=== PATIENT | female | born 1955 | race Caucasian/White ===

== ENCOUNTER 2017-03-20 22:33 | Emergency (ER) | payer OTHER ==
[~2017-03-20] VITALS: Ht 162.6 cm; Wt 152.0 kg
[2017-03-20 23:39] VITALS: BP 109/58
[2017-03-21] MEDS ORDERED: cefTRIAXone SOD 1,000 MG VL IM ONE (00:15)
== END 2017-03-21 00:18 | disposition home or self-care (01) ==
LOC: ER 22:58
DX: J02.9 Acute pharyngitis, unspecified (principal)
CPT/HCPCS: 96372; 99283; J0696

== ENCOUNTER 2017-05-09 08:24 | Emergency (ER) | payer MEDICAID, OTHER ==
[~2017-05-09] VITALS: Ht 162.6 cm; Wt 104.3 kg
[2017-05-09 08:52] VITALS: BP 112/85
[2017-05-09 09:37] LABS: Basophils # (auto) 0 uL; Eosinophils # (auto) 0.1 uL; Eosinophils % (auto) 1.9 % (0.0-7.0); Hematocrit 36.6 % (36.0-46.0); Hemoglobin 12.7 g/dL (12.2-16.2); Lymphocytes # (auto) 0.2 uL; Lymphocytes % (auto) 6.7 % (10.0-50.0); Mean Corpuscular Hemoglobin 31.7 pg (28.0-32.0); Mean Corpuscular Hgb Conc. 34.6 g/dL (32.0-36.0); Mean Corpuscular Volume 91.8 fL (80.0-100.0); Monocytes # (auto) 0.5 uL; Monocytes % (auto) 16.3 % (0.0-12.0); Neutrophils # (auto) 2.4 uL; Neutrophils % (auto) 75.1 % (37.0-80.0); Nucleated Red Blood Cells % 0.2 %; Platelet Count (auto) 188 10^3/uL (140-450); Red Blood Cells 3.99 10^6/uL (4.0-5.20); Red Cell Distribution Width 13.1 % (11.8-14.3); White Blood Cell 3.2 10^3/uL (4.4-10.8)
[2017-05-09] MEDS ORDERED: ONDANSETRON HCL 4 MG/2 ML VIAL ONE (09:40)
[2017-05-09] MEDS ORDERED: MORPHINE SULF INJ 2 MG/ML SYRINGE 1ML ONE (09:43)
[2017-05-09] MEDS ORDERED: ONDANSETRON HCL 4 MG/2 ML VIAL IV ONE (09:45)
[2017-05-09] MEDS ORDERED: SODIUM CHLORIDE 0.9% 1,000 ML IV ONE (09:45)
[2017-05-09] MEDS ORDERED: MORPHINE SULFATE 4 MG/ML SYR/VIAL IV ONE (09:45)
[2017-05-09 09:51] LABS: Alanine Aminotransferase 50 U/L (13-56); Albumin 3.1 g/dL (3.4-5.0); Alkaline Phosphatase 116 U/L (45-117); Amylase 43 U/L (25-115); Anion Gap 12 (5-15); Aspartate Aminotransferase 36 U/L (15-37); BUN/Creatinine Ratio 21.3; Bilirubin, Total 0.4 mg/dL (0.2-1.0); Blood Urea Nitrogen 10 mg/dL (7-18); Calcium 8.6 mg/dL (8.5-10.1); Carbon Dioxide 21 mmol/L (21-32); Chloride 97 mmol/L (98-107); GFR African American 174 mL/min; GFR Non-African American 144 mL/min; Glucose 100 mg/dL (74-106); Lipase 140 U/L (73-393); Potassium 3.3 mmol/L (3.5-5.1); Sodium 130 mmol/L (136-145); Total Protein 6.2 g/dL (6.4-8.2)
[2017-05-09 10:09] LABS: Urine Bacteria NONE SEEN /hpf (None Seen); Urine Blood Negative /uL (Negative); Urine Mucus FEW (None Seen); Urine Specific Gravity 1.029 (1.001-1.035); Urine WBC 2 /hpf (0 - 5)
[2017-05-09] MEDS ORDERED: POTASSIUM CHL 20 Meq TABLET PO ONE ×2 (10:22→10:30)
== END 2017-05-09 10:53 | disposition home or self-care (01) ==
LOC: ER 08:24
DX: K52.9 Noninfective gastroenteritis and colitis, unspecified (principal); J02.9 Acute pharyngitis, unspecified; Z90.49 Acquired absence of other specified parts of digestive tract; Z90.710 Acquired absence of both cervix and uterus
CPT/HCPCS: 36415; 74176; 80053; 81001; 81002; 82150; 83690; 84484; 85025; 93005; 96361; 96374; 96375; 99285; J2270; J2405; J7030

== ENCOUNTER 2017-09-17 04:25 | Emergency (ER) | payer MEDICAID ==
[~2017-09-17] VITALS: Ht 162.6 cm; Wt 108.9 kg
[2017-09-17 04:37] VITALS: BP 160/73
[2017-09-17 05:00] LABS: Urine Bacteria FEW /hpf (None Seen); Urine Blood Negative /uL (Negative); Urine Hyaline Cast FEW /lpf (0 - 2); Urine Mucus FEW (None Seen); Urine Specific Gravity 1.026 (1.001-1.035); Urine WBC 7 /hpf (0 - 5)
== END 2017-09-17 05:51 | disposition left against medical advice (07) ==
LOC: ER 04:26
DX: J02.9 Acute pharyngitis, unspecified (principal); Z53.21 Procedure and treatment not carried out due to patient leaving prior to being seen by health care provider
CPT/HCPCS: 81001

== ENCOUNTER 2019-09-24 20:30 | Inpatient (IN) | payer MEDICAID ==
[~2019-09-24] VITALS: Ht 162.6 cm; Wt 76.8 kg
[2019-09-24 23:35] LABS: Basophils # (auto) 0 10 ^3/uL (0-0.2); Basophils % (auto) 0.5 % (0.0-2.0); Eosinophils # (auto) 0 10 ^3/uL (0-0.8); Eosinophils % (auto) 0.9 % (0.0-7.0); Hematocrit 36.9 % (36.0-46.0); Hemoglobin 12.5 g/dL (12.2-16.2); Lymphocytes # (auto) 0.8 10 ^3/uL (0.4-5.4); Lymphocytes % (auto) 15.6 % (10.0-50.0); Mean Corpuscular Hgb Conc. 33.9 g/dL (32.0-36.0); Mean Corpuscular Volume 91.3 fL (80.0-100.0); Monocytes # (auto) 0.3 10 ^3/uL (0-1.3); Monocytes % (auto) 5.8 % (0.0-12.0); Neutrophils # (auto) 4.1 10 ^3/uL (1.6-8.6); Neutrophils % (auto) 77.2 % (37.0-80.0); Platelet Count (auto) 189 10^3/uL (140-450); Red Blood Cells 4.04 10^6/uL (4.0-5.20); Red Cell Distribution Width 14.6 % (11.8-14.3); White Blood Cell 5.4 10^3/uL (4.4-10.8)
[2019-09-24 23:56] LABS: Alanine Aminotransferase 51 U/L (13-56); Albumin 2.8 g/dL (3.4-5.0); Anion Gap 6 (5-15); Aspartate Aminotransferase 23 U/L (15-37); BUN/Creatinine Ratio 35.9; Blood Urea Nitrogen 23 mg/dL (7-18); Calcium 8.1 mg/dL (8.5-10.1); Carbon Dioxide 24 mmol/L (21-32); Chloride 108 mmol/L (98-107); GFR African American 121 mL/min; GFR Non-African American 100 mL/min; Glucose 105 mg/dL (74-106); Magnesium 2.2 mg/dL (1.6-2.6); Potassium 3.9 mmol/L (3.5-5.1); Sodium 138 mmol/L (136-145)
[2019-09-25 00:01] LABS: Alkaline Phosphatase 123 U/L (45-117); Bilirubin, Total 0.3 mg/dL (0.2-1.0); Total Protein 5.7 g/dL (6.4-8.2)
[2019-09-25 01:12] LABS: Urine Bacteria NONE SEEN /hpf (None Seen); Urine Blood Negative /uL (Negative); Urine Specific Gravity 1.023 (1.001-1.035); Urine WBC 1 /hpf (0 - 5)
[2019-09-25 01:24] LABS: Amphetamine Screen, Urine NEGATIVE (NEGATIVE); Barbiturate Scree,Urine NEGATIVE (NEGATIVE); Benzodiazephine Screen, Urine NEGATIVE (NEGATIVE); Cannabinoid Screen, Urine NEGATIVE (NEGATIVE); Cocaine Screen, Urine NEGATIVE (NEGATIVE); Opiate Scree,Urine NEGATIVE (NEGATIVE); Phencyclidine Screen, Urine NEGATIVE (NEGATIVE)
[2019-09-25] MEDS ORDERED: IOHEXOL 350 MG/ML 100ML IJ ONE ×2 (02:11→02:36)
[2019-09-25 02:42] LABS: INR 1.04 (0.9-1.15); Partial Thromboplastin Time 27.3 sec (23.64-32.05)
[2019-09-25] MEDS ORDERED: cloNIDine HCL 0.1 MG TAB PO PRN (05:00)
[2019-09-25] MEDS ORDERED: ONDANSETRON HCL 4 MG/2 ML VIAL IV PRN (05:00)
[2019-09-25] MEDS ORDERED: NITROGLYCERIN 0.4 MG SL TAB SL PRN (05:00)
[2019-09-25] MEDS ORDERED: ACETAMINOPHEN 325 MG TAB PO PRN (05:00)
[2019-09-25] MEDS ORDERED: MORPHINE SULF INJ 2 MG/ML SYRINGE 1ML IV PRN ×2 (05:00)
[2019-09-25] MEDS ORDERED: DOCUSATE SOD 100 MG CAP PO PRN (05:00)
[2019-09-25] MEDS ORDERED: IPRATROPIUM BROM 0.5 MG/2.5ML INH SOL NEB PRN (05:15)
[2019-09-25] MEDS ORDERED: ALBUTEROL SULF 2.5 MG/0.5ML(0.5%) NEB SOLN NEB PRN (05:15)
[2019-09-25] MEDS ORDERED: OXYB10TA14 (05:29)
[2019-09-25] MEDS ORDERED: ESCI20TA51 (05:29)
[2019-09-25] MEDS ORDERED: ATOR1TAB PO (05:29)
[2019-09-25] MEDS ORDERED: ALBU108A5 PO (05:29)
[2019-09-25] MEDS ORDERED: TOPI25TA84 PO (05:29)
[2019-09-25] MEDS ORDERED: SUCR1TAB PO (05:29)
[2019-09-25] MEDS ORDERED: BACL20TA PO (05:29)
[2019-09-25] MEDS ORDERED: LISI10TA6 PO (05:29)
[2019-09-25] MEDS ORDERED: OXYB5TAB24 PO (05:29)
[2019-09-25] MEDS ORDERED: LORA-154 PO (05:29)
[2019-09-25] MEDS ORDERED: RIZA10TA22 PO (05:29)
[2019-09-25] MEDS ORDERED: CARB200T4 (05:29)
[2019-09-25 06:08] LABS: Basophils # (auto) 0 10 ^3/uL (0-0.2); Basophils % (auto) 0.8 % (0.0-2.0); Eosinophils # (auto) 0.1 10 ^3/uL (0-0.8); Eosinophils % (auto) 2.3 % (0.0-7.0); Hemoglobin 11.7 g/dL (12.2-16.2); Lymphocytes # (auto) 1.1 10 ^3/uL (0.4-5.4); Lymphocytes % (auto) 30.6 % (10.0-50.0); Mean Corpuscular Hemoglobin 30.7 pg (28.0-32.0); Mean Corpuscular Hgb Conc. 33.4 g/dL (32.0-36.0); Mean Corpuscular Volume 91.8 fL (80.0-100.0); Monocytes # (auto) 0.3 10 ^3/uL (0-1.3); Monocytes % (auto) 9.2 % (0.0-12.0); Neutrophils # (auto) 2.1 10 ^3/uL (1.6-8.6); Neutrophils % (auto) 57.1 % (37.0-80.0); Nucleated Red Blood Cells % 0.2 %; Platelet Count (auto) 162 10^3/uL (140-450); Red Blood Cells 3.82 10^6/uL (4.0-5.20); Red Cell Distribution Width 14.1 % (11.8-14.3); White Blood Cell 3.7 10^3/uL (4.4-10.8)
[2019-09-25 06:23] LABS: Calcium 8.2 mg/dL (8.5-10.1); Potassium 4.3 mmol/L (3.5-5.1)
[2019-09-25 06:27] LABS: BUN/Creatinine Ratio 31.1
[2019-09-25 06:56] VITALS: BP 148/76
[2019-09-25] MEDS: carBAMazepine 200 MG TAB PO SCH ×4 (07:12→21:40)
[2019-09-25 08:00] VITALS: BP 121/80
[2019-09-25 09:00] VITALS: BP 121/80
[2019-09-25] MEDS: LISINOPRIL 10 MG TAB PO SCH (10:00)
[2019-09-25] MEDS: PANTOPRAZOLE 40 MG/10 ML VIAL INJ IV SCH (11:02)
[2019-09-25] MEDS: TOPIRAMATE 25 MG TAB PO SCH ×2 (11:02→21:40)
[2019-09-25] MEDS: MULTIPLE VITAMINS W/ MINERALS TAB PO SCH (11:03)
[2019-09-25] MEDS: SODIUM CHLORIDE 0.9% 1,000 ML IV SCH ×2 (11:06→14:59)
[2019-09-25 12:43] VITALS: BP 122/76
[2019-09-25] MEDS: OXYBUTYNIN CHL 5 MG TAB PO SCH ×2 (14:36→21:40)
[2019-09-25 17:00] VITALS: BP 104/60
[2019-09-25] MEDS ORDERED: ATORVASTATIN 20 MG TAB PO SCH (18:00)
[2019-09-25 21:00] VITALS: BP 109/62
[2019-09-25] MEDS: HYDROcodone-ACET 5/325MG TAB PO PRN (21:51)
[2019-09-26] MEDS: SODIUM CHLORIDE 0.9% 1,000 ML IV SCH (02:04)
[2019-09-26] MEDS: HYDROcodone-ACET 5/325MG TAB PO PRN ×2 (04:18→08:33)
[2019-09-26 05:00] VITALS: BP 135/80
[2019-09-26] MEDS: OXYBUTYNIN CHL 5 MG TAB PO SCH (06:22)
[2019-09-26] MEDS: carBAMazepine 200 MG TAB PO SCH (06:23)
[2019-09-26 08:42] VITALS: BP 124/65
[2019-09-26] MEDS: MULTIPLE VITAMINS W/ MINERALS TAB PO SCH (10:04)
[2019-09-26] MEDS: PANTOPRAZOLE 40 MG/10 ML VIAL INJ IV SCH (10:04)
[2019-09-26] MEDS: TOPIRAMATE 25 MG TAB PO SCH (10:05)
[2019-09-26] MEDS: LISINOPRIL 10 MG TAB PO SCH (10:05)
[2019-09-26 11:38] VITALS: BP 124/65
[2019-09-26 12:36] VITALS: BP 142/68
== END 2019-09-26 12:41 | disposition home health service (06) | DRG 204 ==
LOC: EDBD 20:30 → ER 20:30 → TELE 20:31 → TELE-WESTW 09-25 06:39
PROVIDERS: ADMIT Hospitalist; ATTEND Hospitalist
DX: R55 Syncope and collapse (principal); E66.01 Morbid (severe) obesity due to excess calories; S09.90XA Unspecified injury of head, initial encounter; I11.9 Hypertensive heart disease without heart failure; Z80.8 Family history of malignant neoplasm of other organs or systems; E78.5 Hyperlipidemia, unspecified; K21.9 Gastro-esophageal reflux disease without esophagitis; M19.90 Unspecified osteoarthritis, unspecified site; F31.9 Bipolar disorder, unspecified; R26.9 Unspecified abnormalities of gait and mobility; W18.39XA Other fall on same level, initial encounter; Y93.89 Activity, other specified; Y92.89 Other specified places as the place of occurrence of the external cause; Y99.8 Other external cause status; Z68.38 Body mass index [BMI] 38.0-38.9, adult; Z82.49 Family history of ischemic heart disease and other diseases of the circulatory system; Z90.710 Acquired absence of both cervix and uterus; Z98.84 Bariatric surgery status; Z88.7 Allergy status to serum and vaccine; Z88.8 Allergy status to other drugs, medicaments and biological substances
CPT/HCPCS: 36415; 70450; 71045; 71275; 72125; 73120; 80048; 80053; 80061; 80307; 81001; 83735; 83880; 84484; 85025; 85379; 85610; 85730; 93005; 93970; 94640; C9113; G0378; J2405

== ENCOUNTER 2022-12-17 00:21 | Emergency (ER) | payer MEDICAID, OTHER ==
[~2022-12-17] VITALS: Ht 157.5 cm; Wt 109.5 kg
[~2022-12-17 00:21] MED LIST: ALBU108A5 PO; ATOR-47 PO; BACL20TA PO; LISI10TA34 PO; LORA-483 PO; OXYB5TAB24 PO; RIZA10TA22 PO; SUCR1TAB PO; TOPI25TA84 PO
[2022-12-17 00:40] VITALS: PULSE 61; RESP 15; O2SAT 96
[2022-12-17] MEDS ORDERED: LORazepam 0.5 MG TAB PO ONE (01:00)
[2022-12-17] MEDS ORDERED: cloNIDine HCL 0.1 MG TAB PO ONE (01:00)
[2022-12-17 01:16] LABS: Basophils # (auto) 0 10 ^3/uL (0-0.2); Basophils % (auto) 0.6 % (0.0-2.0); Eosinophils # (auto) 0 10 ^3/uL (0-0.8); Hematocrit 39.5 % (36.0-46.0); Hemoglobin 13.3 g/dL (12.2-16.2); Lymphocytes % (auto) 18.3 % (10.0-50.0); Mean Corpuscular Hgb Conc. 33.7 g/dL (32.0-36.0); Mean Corpuscular Volume 92.2 fL (80.0-100.0); Monocytes # (auto) 0.4 10 ^3/uL (0-1.3); Monocytes % (auto) 7.1 % (0.0-12.0); Neutrophils # (auto) 3.9 10 ^3/uL (1.6-8.6); Red Blood Cells 4.29 10^6/uL (4.0-5.20); Red Cell Distribution Width 13.4 % (11.8-14.3); White Blood Cell 5.2 10^3/uL (4.4-10.8)
[2022-12-17 01:32] LABS: BUN/Creatinine Ratio 31.8 (10.0-20.0); Calcium 8.9 mg/dL (8.5-10.1); Magnesium 2.2 mg/dL (1.6-2.6); Potassium 3.8 mmol/L (3.5-5.1)
[2022-12-17 01:35] LABS: Bilirubin, Total 0.2 mg/dL (0.2-1.0); Total Protein 5.9 g/dL (6.4-8.2)
[2022-12-17 04:01] VITALS: BP 124/78; PULSE 67; RESP 13; TEMP 97.8; O2SAT 93
== END 2022-12-17 04:20 | disposition home or self-care (01) ==
LOC: EDBD 00:21 → ER 00:23
DX: F41.9 Anxiety disorder, unspecified (principal); I10 Essential (primary) hypertension; K21.9 Gastro-esophageal reflux disease without esophagitis; E78.5 Hyperlipidemia, unspecified; Z90.49 Acquired absence of other specified parts of digestive tract; Z90.710 Acquired absence of both cervix and uterus; Z88.6 Allergy status to analgesic agent
CPT/HCPCS: 36415; 71045; 80053; 83735; 83880; 84484; 85025; 93005

== ENCOUNTER 2024-06-30 03:52 | Emergency (ER) | payer MEDICARE, MEDICAID ==
[~2024-06-30] VITALS: Ht 162.6 cm; Wt 131.8 kg
--- NOTE | 2024-06-30 04:18 | ED.PDOC ---
History of Present Illness HPI Comments 68-year-old female with a history of hypertension and Parkinson's disease states that she when outside the check on the dogs and tripped on some bushes about an hour ago 3:00 a.m. and then it on her left side on the ground. Patient now complains of some dull left pain to her left hand and left elbow and left hip area. No head injury or neck pain. Patient states that her blood pressure has been running a little bit elevated in her primary doctor was planning to increase her dose of her amlodipine starting today. Chief Complaint: High Blood Pressure Time Seen by MD: 04:01 Primary Care Provider: DENIES Allergies: Coded Allergies: Alprazolam (Verified Allergy, Unknown, 09/24/19) Aripiprazole (Verified Allergy, Unknown, 09/24/19) NSAIDs (Verified Allergy, Unknown, 05/09/17) Tetanus Toxoid (Verified Allergy, Unknown, 05/09/17) Home Meds Reported Medications Sucralfate (Sucralfate) 1 Gm Tab, 1 GM PO TID 09/25/19 Lisinopril (Lisinopril) 10 Mg Tab, 1 TAB PO DAILY 09/25/19 Topiramate (Topiramate) 25 Mg Tab, 2 TAB PO BID 09/25/19 Baclofen (Baclofen) 20 Mg Tab, 1 TAB PO BID 09/25/19 Oxybutynin Chloride (Ditropan Xl) 5 Mg Tab, 15 MG PO DAILY 09/25/19 Rizatriptan Benzoate (RIZATRIPTAN BENZOATE) 10 Mg Tab, 1 TAB PO when migraine starts 09/25/19 Albuterol Sulfate (Albuterol Sulfate Hfa) 108 Mcg/Act Aer, 1 PUFF PO Q4HP 09/25/19 Loratadine (CLARITIN TABLET) 10 Mg Tb, 1 TAB PO DAILY 09/25/19 Atorvastatin Calcium (ATORVASTATIN CALCIUM) 80 Mg Tab, 80 MG PO HS 09/25/19 Information Source: Patient, Emergency Med Personnel Mode of Arrival: EMS Severity: Moderate Timing: Hours Past Medical History PAST MEDICAL HISTORY: Depression, Gallstones, GERD, High Lipids, HTN Surgical History: Cholecystectomy, Hysterectomy, Thyroidectomy DELI SLICER History: No Pertinent DELI SLICER History Family History Family History: Reviewed,noncontributory to illness Social History Smoker: Non-Smoker Alcohol: Denies ETOH Use Drugs: Denies Drug Use Lives In: Home Constitutional: reports: fatigue Musculoskeletal: reports: joint pain, muscle pain All Other Systems: Reviewed and Negative Physical Exam General Appearance: Mild Distress HEENT: Normal ENT Inspection, Pharynx Normal, TMs Normal Neck: Full Range of Motion, Non-Tender, Normal, Normal Inspection Respiratory: Chest Non-Tender, Lungs Clear, No Accessory Muscle Use, No Respiratory Distress, Normal Breath Sounds Cardiovascular: No Edema, No JVD, No Murmur, No Gallop, Normal Peripheral Pulses, Regular Rate/Rhythm Breast Exam: Deferred Gastrointestinal: No Organomegaly, Non Tender, No Pulsatile Mass, Normal Bowel Sounds, Soft Genitalia: Deferred Pelvic: Deferred Rectal: Deferred Extremities: Other (mild tenderness left hand, left hip and left elbow ) Musculoskeletal : Apperance: Normal Neurologic: Alert, respiratory tech II-XII nml as Tested, No Motor Deficits, Normal Affect, Normal Mood, No Sensory Deficits Cerebellar Function: Normal Reflexes: Normal Skin: Other (small superficial abrasion left elbow area) Lymphatic: No Adenopathy Was a procedure done? Was a procedure done?: No Differential Dx Considerations may include: Differential diagnosis includes but not limited to: angina, myocardial infarc tion, ischemic stroke, intracranial hemorrhage, acute renal injury, end-organ failure and others X-Ray, Labs, Meds, VS Vital Signs Date Time Temp Pulse Resp B/P (MAP) Pulse Ox O2 Delivery O2 Flow Rate FiO2 06/30/24 06:00 64 16 153/74 (100) 98 06/30/24 06:00 168/79 06/30/24 05:04 177/78 06/30/24 04:45 63 94 95 Room Air* 0 21 06/30/24 04:41 61 13 176/94 (121) 97 06/30/24 04:00 64 06/30/24 04:00 98.1 66 16 206/98 (134) 95 Lab Test 06/30/24 05:16 06/30/24 04:02 Range/Units Troponin I High Sensitivity 4 4 </=34 ng/L White Blood Count 4.3 L 4.4-10.8 10^3/uL Red Blood Count 4.55 4.0-5.20 10^6/uL Hemoglobin 13.9 12.2-16.2 g/dL Hematocrit 42.2 36.0-46.0 % Mean Corpuscular Volume 92.8 80.0-100.0 fL Mean Corpuscular Hemoglobin 30.6 28.0-32.0 pg Mean Corpuscular Hemoglobin Concent 33.0 32.0-36.0 g/dL Red Cell Distribution Width 13.6 11.8-14.3 % Platelet Count 231 140-450 10^3/uL Mean Platelet Volume 8.0 6.9-10.8 fL Neutrophils (%) (Auto) 60.4 37.0-80.0 % Lymphocytes (%) (Auto) 32.4 10.0-50.0 % Monocytes (%) (Auto) 6.9 0.0-12.0 % Eosinophils (%) (Auto) 0.0 0.0-7.0 % Basophils (%) (Auto) 0.3 0.0-2.0 % Neutrophils # (Auto) 2.6 1.6-8.6 10 ^3/uL Lymphocytes # (Auto) 1.4 0.4-5.4 10 ^3/uL Monocytes # (Auto) 0.3 0-1.3 10 ^3/uL Eosinophils # (Auto) 0 0-0.8 10 ^3/uL Basophils # (Auto) 0 0-0.2 10 ^3/uL Nucleated Red Blood Cells 0.1 % Sodium Level 141 136-145 mmol/L Potassium Level 3.1 L 3.5-5.1 mmol/L Chloride Level 104 98-107 mmol/L Carbon Dioxide Level 27 20-31 mmol/L Anion Gap 10 5-15 Blood Urea Nitrogen 6 L 9-23 mg/dL Creatinine 0.59 0.550-1.02 mg/dL Glomerular Filtration Rate Calc 99 >90 mL/min BUN/Creatinine Ratio 10.2 10.0-20.0 Serum Glucose 99 74-106 mg/dL Calcium Level 9.2 8.7-10.4 mg/dL Total Bilirubin 0.3 0.2-1.0 mg/dL Aspartate Amino Transferase (AST) 25 13-40 U/L Alanine Aminotransferase (ALT) 34 7-40 U/L Alkaline Phosphatase 127 H 46-116 U/L Total Protein 6.0 5.7-8.2 g/dL Albumin 4.1 3.2-4.8 g/dL Current Medications Medications (Trade) Dose Ordered Sig/Coco Route Start Time Stop Time Status Last Admin Clonidine HCl (Catapres Tablet) 0.2 mg ONCE ONCE PO 06/30/24 05:00 06/30/24 05:01 DC 06/30/24 05:04 Potassium Chloride (Klor-Con Tablet) 40 meq ONCE ONCE PO 06/30/24 05:30 06/30/24 05:31 DC 06/30/24 05:49 Time of 1ST Reevaluation: 04:17 Reevaluation 1ST: Unchanged Time of 2ND Reevaluation: 05:15 Reevaluation 2ND: Improved Patient Education/Counseling: Diagnosis, Treatment Family Education/Counseling: No Family Present Departure 1 Departure Time of Disposition: 05:15 Impression: Primary Impression: Hypertension Additional Impressions: Contusion of left hip, initial encounter Contusion of left arm Disposition: 01 HOME / SELF CARE / HOMELESS Condition: Stable Discharged With: Self Critical Care Note Critical Care Time?: No Stability Stability form required: No Heart Score Heart Score: Heart Score Response (Comments) Value History Slightly Suspicious 0 EKG Repolarization Disturb 1 Age >65 2 Risk Factors 1 or 2 risk factors 1 Troponin Normal limit 0 Total 4 ADELINA SINGH MD Jun 30, 2024 04:18
[2024-06-30 04:45] VITALS: PULSE 63; RESP 94; O2SAT 95
[2024-06-30 04:45] LABS: Basophils # (auto) 0 10 ^3/uL (0-0.2); Basophils % (auto) 0.3 % (0.0-2.0); Eosinophils # (auto) 0 10 ^3/uL (0-0.8); Hematocrit 42.2 % (36.0-46.0); Hemoglobin 13.9 g/dL (12.2-16.2); Lymphocytes # (auto) 1.4 10 ^3/uL (0.4-5.4); Lymphocytes % (auto) 32.4 % (10.0-50.0); Mean Corpuscular Hemoglobin 30.6 pg (28.0-32.0); Mean Corpuscular Volume 92.8 fL (80.0-100.0); Monocytes # (auto) 0.3 10 ^3/uL (0-1.3); Monocytes % (auto) 6.9 % (0.0-12.0); Neutrophils # (auto) 2.6 10 ^3/uL (1.6-8.6); Neutrophils % (auto) 60.4 % (37.0-80.0); Nucleated Red Blood Cells % 0.1 %; Platelet Count (auto) 231 10^3/uL (140-450); Red Blood Cells 4.55 10^6/uL (4.0-5.20); Red Cell Distribution Width 13.6 % (11.8-14.3); White Blood Cell 4.3 10^3/uL (4.4-10.8)
[2024-06-30 05:01] LABS: Alanine Aminotransferase 34 U/L (7-40); Albumin 4.1 g/dL (3.2-4.8); Anion Gap 10 (5-15); Aspartate Aminotransferase 25 U/L (13-40); BUN/Creatinine Ratio 10.2 (10.0-20.0); Bilirubin, Total 0.3 mg/dL (0.2-1.0); Calcium 9.2 mg/dL (8.7-10.4); Carbon Dioxide 27 mmol/L (20-31); Chloride 104 mmol/L (98-107); Glucose 99 mg/dL (74-106); Sodium 141 mmol/L (136-145)
[2024-06-30 05:04] LABS: Alkaline Phosphatase 127 U/L (46-116); Blood Urea Nitrogen 6 mg/dL (9-23); Potassium 3.1 mmol/L (3.5-5.1)
[2024-06-30] MEDS: cloNIDine HCL 0.1 MG TAB PO ONE (05:04)
--- NOTE | 2024-06-30 05:10 | DVH ---
EXAM: XY L HIP COMPLETE XRAY CLINICAL INDICATION: pain / fall TECHNIQUE: XY L HIP COMPLETE XRAY, 3 views Comparison: None FINDINGS/IMPRESSION: There is no evidence of acute fracture or dislocation. The visualized joint space is well maintained. The alignment is anatomical. There is no radiopaque foreign body.
--- NOTE | 2024-06-30 05:10 | DVH ---
EXAM: XY L ELBOW 2 VIEW XRAY CLINICAL INDICATION: pain / fall TECHNIQUE: XY L ELBOW 2 VIEW XRAY Comparison: None FINDINGS/IMPRESSION: There is no evidence of acute fracture or dislocation. The visualized joint space is well maintained. The alignment is anatomical. There is no radiopaque foreign body.
--- NOTE | 2024-06-30 05:10 | DVH ---
CLINICAL INDICATION: pain / fall TECHNIQUE: XY L HAND 2V XRAY Comparison: None FINDINGS/IMPRESSION: : There is no evidence of acute fracture or dislocation. Soft tissues are unremarkable.
[2024-06-30] MEDS: POTASSIUM CHL 20 Meq TABLET PO ONE (05:49)
[2024-06-30 06:00] VITALS: BP 153/74; PULSE 64; RESP 16; O2SAT 98
--- NOTE | 2024-06-30 06:23 | ECG ---
[facility] Test Date: 2024-06-30 Test Time: 04:00:42 Pat Name: MARCO ANTONIO REYES Department: ED Room: Gender: F [employer] Operator: ALFREDO : 1955 Requested By: ADELINA SINGH Order Number: [id number] Reading MD: Scottie Gasca Measurements Intervals [place] Rate: 64 P: 6 OR: 189 QRS: 10 QRSD: 104 T: 27 QT: 454 QTc: 469 Interpretive Statements Sinus rhythm Electronically Signed On 07-03-2024 17:35:24 PST by Scottie Gasca Please click the below link to view image of tracing.
== END 2024-06-30 06:50 | disposition home or self-care (01) ==
LOC: EDBD 03:52 → ER 03:52
DX: S40.022A Contusion of left upper arm, initial encounter (principal); S70.02XA Contusion of left hip, initial encounter; I10 Essential (primary) hypertension; K21.9 Gastro-esophageal reflux disease without esophagitis; E78.5 Hyperlipidemia, unspecified; Z90.49 Acquired absence of other specified parts of digestive tract; Z90.710 Acquired absence of both cervix and uterus; Z90.89 Acquired absence of other organs; Z79.899 Other long term (current) drug therapy; Z88.6 Allergy status to analgesic agent; Z88.7 Allergy status to serum and vaccine; Z88.8 Allergy status to other drugs, medicaments and biological substances; W01.0XXA Fall on same level from slipping, tripping and stumbling without subsequent striking against object, initial encounter; Y93.89 Activity, other specified; Y92.89 Other specified places as the place of occurrence of the external cause; Y99.8 Other external cause status
CPT/HCPCS: 36415; 73070; 73120; 73502; 80053; 84484; 85025; 93005